=== PATIENT | female | born 1965 | race Caucasian/White ===

== ENCOUNTER 2017-02-22 08:12 | Emergency (ER) | payer MEDICARE, MEDICAID ==
[~2017-02-22] VITALS: Ht 172.7 cm; Wt 100.0 kg
[~2017-02-22 08:12] MED LIST: ZIT250 PO
[2017-02-22 08:16] VITALS: BP 151/96; PULSE 84; RESP 18; O2SAT 98
--- NOTE | 2017-02-22 08:46 | ED.REPORT ---
HPI-Back Pain 40 and Over Date of Service Feb 22, 2017 ED Provider: Manuel Daugherty MD A 51 year old female with h/o sever chronic back pain, HTN, COPD, UTI, and hip bursitis presents to the ED c/o severe low lumbar back pain and urine urgency She wants UA evaluation as she is concerned about an infection.. She strained her back 2 weeks ago and followed up with PCP 2 days ago when her back was "knotted up." PCP gave her Flexeril. 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 She recently had the flu for 4 days , recovering 3 days ago, but has no nausea or vomiting now. She denies any dysuria, fever, chills, diaphoresis, or numbness or weakness in extremities. 2 months ago, she reports episodes of sudden urgency where she could "not make it to the bathroom." She was not diagnosed with infection or given any antibiotics but was given medication to control this at that time. Her last antibiotic was a long time ago. She takes regular HTN medication and takes hydrocodone when her back pain flares up. She has recently been taking Tylenol and ibuprofen for back pain but did not take any today. Nursing Notes Stated Complaint: BACK PAIN/POSSIBLE KIDNEY INFECTION Chief Complaint: Back Pain or Injury Nursing Notes Reviewed: Yes ([employer], [employer] not reconciled) Allergies: Coded Allergies: tramadol (Verified Allergy, Unknown, 06/16/16) Scheduled Azithromycin (Zithromax) 250 Mg Tablet 250 MG PO DAILY Sulfamethoxazole/Trimeth 800-160 mg (Bactrim DS) 1 Each Tablet 1 TABLET PO BID Scheduled PRN Hydrocodone-Acetaminophen 5-325 mg (Hydrocodone-Acetaminophen 5-325 mg) 1 Each Tablet 1-2 TABLET PO Q6H PRN PRN For Pain General Time Seen by MD: 08:24 Chief Complaint Back pain Hx Obtained From: Patient Arrived By: Walk-in Sudden in Onset?: No Onset Occurred: More than a week ago... (2 weeks) Radiation: : Does not radiate Severity: Current: Severe Severity: Maximum: Severe Recent Healthcare: Recent doctor visit Similar Sx Previous: No Past Medical History Past Medical History chronic back pain hip bursitis Reports: Asthma, COPD, Hypertension Past Surgical History None reported. 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 Ambulatory Status Independent Review of Systems Constitutional: Denies: Chills, Fever GI: Denies: Nausea, Vomiting Female: Reports: Urinary urgency, Denies: Dysuria Musculoskeletal: Reports: Back pain Neurologic: Denies: Numbness, Weakness Complete sys rev & neg: except as marked. Skin: Denies Diaphoresis Physical Exam Initial Vital Signs Vital Signs (First) Date Time Temp Pulse Resp B/P Pulse Ox O2 Delivery O2 Flow Rate FiO2 02/22/17 08:16 36.4 84 18 151/96 98 Room Air Initial VS: Reviewed, Vital signs normal General/Constitutional: Awake, Alert, Well appearing Patient is comftorably moving around. Respiratory / Chest: Atraumatic, Breath sounds NL, Breath sounds = bilat, No respiratory distress, No rales, No rhonchi, No wheezing Cardiovascular: Heart rate NL, Regular rhythm, Heart sounds NL, No gallop, No murmurs, No rubs Abdomen: Soft, Non-tender Pain with movement. Back: No CVA tenderness Neurologic: Oriented X3, Speech NL, No motor deficits, No sensory deficits Normal neuro exam. Skin: Atraumatic, Color NL, Warm, Dry Head / Eyes: Atraumatic, Normocephalic, PERRL, EOMI ENT: Atraumatic, Airway patent, Mucous membranes moist Interpretation & Diagnostics Interpretation & Diagnostics: Bladder Scan 76 ml Lab Results Interpretation Test 02/22/17 08:38 Hold Urine Received (Received) Lab Results Interpretation: Urine dip 2+ leuk positive Re-Eval/Medical Decision Med Decision/Clinical Course This is a 51-year-old female presents complaining of back pain but also some urinary symptoms and is concerned about a possible UTI. She reports she typically had a mechanical back injury, but is now having urgency and so she is concerned. She has had no fever, nausea or vomiting clinically has no CVA tenderness or features suggest taiwo pyelonephritis. She describes what sounds like a muscle skeletal injury followed by mechanical pain, but again does have some urinary symptoms. She has no neurologic symptoms or red flags to indicate need for neuro imaging. Her urine is 2+ dip positive for leuks, so the patient is being started on empiric antibiotics. A bladder scan demonstrated a normal postvoid residual. The patient's discharged in improved condition. Source of Hx: Old records Re-Evaluation/Progress : Time of Eval: 08:24 Patient Status: Condition improved Re-Evaluation/Progress Note: Explained test results, diagnosis, and plan for discharge. Patient understands and agrees with the plan. All questions addressed. Differential Diagnosis: Positive: Musculoskeletal pain, Negative: Abdominal aortic aneurysm, , Cauda equina syndrome, Herniated disk, Neoplasm, Osteomyelitis, Pyelonephritis, Sciatica, Spinal mass, Thoracic aortic dissect, Thoracic strain, Urinary obstruction Counseled Regarding: Diagnosis, Lab results, Need for follow-up, When/why to return to ED Discharge & Departure Impression: Primary Impression: Low back pain Chronicity: acute Back pain laterality: midline Sciatica presence: without sciatica Qualified Code: M54.5 - Low back pain Additional Impression: Urinary tract infection Urinary tract infection type: acute cystitis Hematuria presence: without hematuria Qualified Code: N30.00 - Acute cystitis without hematuria Disposition: Home Discharge Condition All VS Reviewed: Yes Condition: Improved Additional Instructions: 1. I suspect your back pain is indeed musculoskeletal from the back strain, and not from a kidney infection. However, your urine tests due indicate a urinary tract infection and he should be on antibiotics. 2. Take the antibiotic trimethoprim sulfa 1 tablet twice a day for 6 days. 3. For your back pain take ibuprofen 400-800 mg 3 times a day. 4. Additionally take Tylenol up to 1000 mg 3 times a day. 5. If needed for more severe pain, you can take hydrocodone/APAP 5/325 1-2 tabs up to every 6 hours. USE SPARINGLY. Note this medication contains Tylenol itself, and if you need to take it, skipped a subsequent dose of Tylenol. Note this medication also contains a narcotic and causes drowsiness. Use as little as possible, prolonged use can result intolerance and/or addiction. No driving for at least 4-6 hours after taking. 6. No heavy lifting, other activities as tolerated. He does generally resolve with time, and staying active to the degree tolerated is the best intervention. 7. Return if new or worsening symptoms, fever, nausea vomiting. 8. Follow up with your regular doctor. (If you need a referal to a primary care provider, follow up with the [facility].) Referrals: NOPCP (PCP) [facility] Scribe Attestation Portions of this note were transcribed by Rajendra Carrillo. I, Dr. Daugherty personally performed the history, physical exam and medical decision-making; I reviewed and confirmed the accuracy of the information in the transcribed note. Signed by: Raine Muse, 02/22/2017, [id number]. copies to: NOPCP; [facility] Manuel Daugherty MD Feb 22, 2017 08:46 Rajendra Carrillo Feb 22, 2017 08:57
[2017-02-22] MEDS ORDERED: Trimethoprim-Sulfa 160 mg-800 mg Tablet PO ONE (09:00)
[2017-02-22] MEDS ORDERED: SULF1TAB7 PO (09:12)
[2017-02-22] MEDS ORDERED: HYDR-4003 PO (09:12)
[2017-02-22 09:20] VITALS: BP 165/103; PULSE 83; RESP 15; O2SAT 97
[2017-02-22 09:33] VITALS: BP 165/103; PULSE 83; RESP 15; O2SAT 97
== END 2017-02-22 09:34 | disposition home or self-care (01) ==
LOC: SED 08:12
DX: N30.00 Acute cystitis without hematuria (principal); I10 Essential (primary) hypertension; J44.9 Chronic obstructive pulmonary disease, unspecified; J45.909 Unspecified asthma, uncomplicated; Z87.440 Personal history of urinary (tract) infections; Z88.8 Allergy status to other drugs, medicaments and biological substances; F17.200 Nicotine dependence, unspecified, uncomplicated